=== PATIENT | male | born 1950 | race Caucasian/White ===

== ENCOUNTER 2018-05-14 15:35 | Emergency (ER) | payer MEDICARE, OTHER, MEDICAID | END 2018-05-14 18:58 | disposition home or self-care (01) | LOC: FTE 15:35 | DX: M26.601 Right temporomandibular joint disorder, unspecified (principal); I10 Essential (primary) hypertension; F17.210 Nicotine dependence, cigarettes, uncomplicated | CPT/HCPCS: 99283 ==